=== PATIENT | male | born 1980 | race Asian ===

== ENCOUNTER 2017-07-16 19:13 | Inpatient (IN) | payer BC ==
[~2017-07-16] VITALS: Ht 175.3 cm; Wt 79.4 kg
[2017-07-16] MEDS ORDERED: HYDROMORPHONE HCL/PF 2MG/ML CPJ IM ONE (20:00)
[2017-07-16] MEDS ORDERED: ONDANSETRON HCL 4MG/2ML VIAL IV STA (21:07)
[2017-07-16] MEDS ORDERED: MORPHINE SULFATE 4 MG/ML CPJ (NOT FOR IM USE) IV STA ×2 (21:07→21:20)
[2017-07-16 21:34] LABS: BASOPHILS % 0.3 % (0.0-2.0); EOSINOPHILS % 0.6 % (0.0-5.0); HEMATOCRIT. 43.1 % (42.0-52.0); HEMOGLOBIN. 14.7 g/dL (14.0-18.0); LYMPHOCYTES % 11.1 % (20.0-50.0); MEAN CORPUSCULAR HEMOGLOBIN 30.5 pg (28.0-32.0); MEAN CORPUSCULAR VOLUME 89.2 fL (80.0-94.0); PLATELET 319 x1000/uL (130-400); RED BLOOD CELL COUNT 4.83 mill/uL (4.7-6.1); RED CELL DISTRIBUTION WIDTH 13.2 % (11.6-14.6)
[2017-07-16 21:36] LABS: CHLORIDE 102 mEq/L (98-107)
[2017-07-16 21:38] LABS: PROTHROMBIN TIME 10.6 sec (9.4-11.6)
[2017-07-16] MEDS ORDERED: SODIUM CHLORIDE 0.9% 1,000 ML IV ONE (23:08)
[2017-07-17] VITALS (7 sets, daily range): BP systolic 97–140; BP diastolic 61–79
[2017-07-17] MEDS ORDERED: ONDANSETRON HCL 4MG/2ML VIAL IV PRN (02:45)
[2017-07-17] MEDS: DEXT 5%/0.45% NACL 1000ML 1,000 ML IV SCH ×2 (04:47→18:17)
[2017-07-17] MEDS: MORPHINE SULFATE 4 MG/ML CPJ (NOT FOR IM USE) IV PRN ×3 (11:50→22:29)
[2017-07-17] MEDS ORDERED: ROCURONIUM BROMIDE 10MG/ML VIAL 5ML IV ONE (12:08)
[2017-07-17] MEDS ORDERED: PROPOFOL 200MG/20ML VIAL IV ONE (12:08)
[2017-07-17] MEDS ORDERED: FENTANYL CITRATE/PF 50MCG/ML 5ML VIAL ONE (12:08)
[2017-07-17] MEDS ORDERED: MIDAZOLAM HCL 2 MG/2 ML VIAL ONE (12:08)
[2017-07-17] MEDS ORDERED: HYDROMORPHONE HCL/PF 2MG/ML (OR) ONE (12:08)
[2017-07-17] MEDS ORDERED: CEFAZOLIN SODIUM 1000MG/VIAL ONE (14:52)
[2017-07-17] MEDS ORDERED: ONDANSETRON HCL 4MG/2ML VIAL ONE (15:18)
[2017-07-17] MEDS ORDERED: VANCOMYCIN HCL 500 MG/VIAL ONE ×2 (15:47→16:47)
[2017-07-17] MEDS ORDERED: CEFAZOLIN 1000MG PREMIX 50 ML IV SCH (16:00)
[2017-07-17] MEDS ORDERED: NEOSTIGMINE METHYLSULFATE 1MG/ML 10 ML VIAL ONE (16:01)
[2017-07-17] MEDS ORDERED: GLYCOPYRROLATE 0.2 MG/ML 2ML VIAL ONE (16:01)
[2017-07-17] MEDS ORDERED: BACITRACIN 50,000 UNITS/VIAL ONE (16:47)
[2017-07-17] MEDS ORDERED: BACITRACIN ZINC 15GM TUBE TOP ONE (16:48)
[2017-07-17] MEDS ORDERED: NORMAL SALINE 0.9% 10 ML SYR ONE (16:48)
[2017-07-17] MEDS ORDERED: FENTANYL CITRATE/PF 50MCG/ML 2ML VIAL IV PRN (17:00)
[2017-07-17] MEDS ORDERED: HYDROMORPHONE HCL/PF 2MG/ML CPJ IV PRN (17:00)
[2017-07-17] MEDS ORDERED: ONDANSETRON HCL 4MG/2ML VIAL IV ONE (17:00)
[2017-07-17] MEDS ORDERED: MEPERIDINE HCL/PF 25MG/ML CPJ IV PRN (17:00)
[2017-07-18] VITALS: BP 129/74
[2017-07-18] MEDS: CEFAZOLIN 1000MG PREMIX 50 ML IV SCH ×2 (01:17→10:03)
[2017-07-18] MEDS: MORPHINE SULFATE 4 MG/ML CPJ (NOT FOR IM USE) IV PRN ×2 (03:21→07:28)
[2017-07-18 04:00] VITALS: BP 129/78
[2017-07-18] MEDS ORDERED: ACETAMINOPHEN 325MG TABLET PO PRN (07:00)
[2017-07-18] MEDS ORDERED: HYDROMORPHONE HCL/PF 2MG/ML CPJ IM PRN (07:00)
[2017-07-18 08:00] VITALS: BP 128/68
[2017-07-18 08:19] LABS: BASOPHILS % 0.2 % (0.0-2.0); EOSINOPHILS % 0.1 % (0.0-5.0); HEMATOCRIT. 39.3 % (42.0-52.0); HEMOGLOBIN. 13.4 g/dL (14.0-18.0); LYMPHOCYTES % 15.9 % (20.0-50.0); MEAN CORPUSCULAR HEMOGLOBIN 30.5 pg (28.0-32.0); MEAN CORPUSCULAR VOLUME 89.8 fL (80.0-94.0); MEAN PLATELET VOLUME 7.9 fl (7.4-10.4); MONOCYTES % 10.1 % (2.0-8.0); NEUTROPHILS % 73.7 % (40.0-76.0); PLATELET 282 x1000/uL (130-400); RED BLOOD CELL COUNT 4.38 mill/uL (4.7-6.1); RED CELL DISTRIBUTION WIDTH 13.1 % (11.6-14.6)
[2017-07-18 08:34] LABS: CHLORIDE 102 mEq/L (98-107)
[2017-07-18 12:00] VITALS: BP 120/72
[2017-07-18 16:00] VITALS: BP 104/69
[2017-07-18] MEDS: DEXT 5%/0.45% NACL 1000ML 1,000 ML IV SCH (18:34)
[2017-07-18 20:00] VITALS: BP 110/66
[2017-07-19] VITALS: BP 114/62
[2017-07-19] MEDS: DEXT 5%/0.45% NACL 1000ML 1,000 ML IV SCH (03:19)
[2017-07-19 04:00] VITALS: BP 116/78
[2017-07-19 08:00] VITALS: BP 119/72
[2017-07-19 12:00] VITALS: BP 113/72
[2017-07-19 16:00] VITALS: BP 117/70
[2017-07-19 17:45] VITALS: BP 117/73
== END 2017-07-19 18:09 | disposition home or self-care (01) | DRG 494 ==
LOC: ER 20:32 → 6EST 23:38 → EDBEDREQ 23:44 → EDBEDREQSVC 23:44 → EDBEDREQTM 23:44
PROVIDERS: ADMIT Hospitalist; ATTEND Hospitalist
PROC: 0PSF04Z Reposition Right Humeral Shaft with Internal Fixation Device, Open Approach (ICD-10-PCS; principal; 2017-07-17 12:30)
DX: S42.411A Displaced simple supracondylar fracture without intercondylar fracture of right humerus, initial encounter for closed fracture (principal); D72.829 Elevated white blood cell count, unspecified; X58.XXXA Exposure to other specified factors, initial encounter; G56.30 Lesion of radial nerve, unspecified upper limb; Z88.8 Allergy status to other drugs, medicaments and biological substances; Y92.89 Other specified places as the place of occurrence of the external cause; Y93.72 Activity, wrestling
CPT/HCPCS: 36415; 73060; 73070; 73090; 80053; 85025; 85610; 97110; 97166; A4216; J0690; J1170; J2250; J2270; J2405; J2704; J2710; J3010; J3370; J3490; J7030